=== PATIENT | male | born 1995 | race Caucasian/White ===

== ENCOUNTER 2021-08-21 12:11 | Emergency (ER) | payer OTHER ==
[~2021-08-21] VITALS: Ht 167.6 cm; Wt 68.2 kg
[2021-08-21 12:12] VITALS: BP 139/75
== END 2021-08-21 13:44 | disposition home or self-care (01) ==
LOC: EMS 12:11
DX: T78.40XA Allergy, unspecified, initial encounter (principal); J45.909 Unspecified asthma, uncomplicated; F12.90 Cannabis use, unspecified, uncomplicated; Z91.018 Allergy to other foods; X58.XXXA Exposure to other specified factors, initial encounter
CPT/HCPCS: 99282; Z7502